=== PATIENT | male | born 1960 | race Caucasian/White ===

== ENCOUNTER 2017-01-24 20:40 | Emergency (ER) | payer OTHER ==
[~2017-01-24] VITALS: Ht 182.9 cm; Wt 104.3 kg
[~2017-01-24 20:40] MED LIST: BENA1TAB6 PO; BENA20TA2 PO
[2017-01-24] MEDS ORDERED: IV NORMAL SALINE 1000ML BAG 1,000 ML IV ONE (21:30)
[2017-01-24] MEDS ORDERED: KETOROLAC 15 MG/ML VIAL. IV ONE (21:30)
[2017-01-24] MEDS ORDERED: ONDANSETRON PF 4 MG/2 ML VIAL. IV ONE (21:30)
[2017-01-24] MEDS ORDERED: HYDROmorphone 2 MG/ML VIAL IV ONE ×2 (21:30→22:15)
[2017-01-24] MEDS ORDERED: IBUP-1007 PO (23:27)
[2017-01-24] MEDS ORDERED: OXYC-323 PO (23:27)
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
[2017-01-24 23:30] VITALS: BP 157/88
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
== END 2017-01-24 23:44 | disposition home or self-care (01) ==
LOC: ER 20:40
DX: S52.302A Unspecified fracture of shaft of left radius, initial encounter for closed fracture (principal); S52.202A Unspecified fracture of shaft of left ulna, initial encounter for closed fracture; I10 Essential (primary) hypertension; W05.0XXA Fall from non-moving wheelchair, initial encounter; Y93.89 Activity, other specified; Y92.89 Other specified places as the place of occurrence of the external cause; Y99.8 Other external cause status
CPT/HCPCS: 29125; 29240; 73090; 96361; 96374; 96375; 96376; 99285; J1170; J1885; J2405; J7030

== ENCOUNTER 2017-01-29 07:34 | Day surgery (SDC) | payer OTHER ==
[~2017-01-29] VITALS: Ht 182.9 cm; Wt 104.3 kg
[~2017-01-29 07:34] MED LIST changes: +ATOR10TA60; +BUPIVACAINE MPF 0.5% 30 ML VIAL. ONE; +CETI10TA22 PO; +HYDROmorphone 2 MG/ML VIAL IV PRN; +IBUP-1007 PO; +LIDOCAINE 1% 1 ML SYRINGE. ID PRN; +LIDOCAINE 1% PF 30 ML VIAL. ONE; +MORPHINE SULFATE 4 MG/ML DISP.SYRIN. IV PRN; +MULT-208 PO; +ONDANSETRON PF 4 MG/2 ML VIAL. IV PRN; +OXYC-323 PO; +PROCHLORPERAZINE 10 MG/2 ML VIAL. IV PRN; +RANI150T6 PO; +fentaNYL PF VIAL 100 MCG/2 ML VIAL IV PRN
[2017-01-29] MEDS: IV RINGERS,LACTATED 1000ML 1,000 ML IV SCH ×2 (08:24→12:39)
[2017-01-29] MEDS ORDERED: DEXAMETHASONE SOD PHOS 20 MG/5 ML VIAL. ONE (08:52)
[2017-01-29] MEDS ORDERED: ONDANSETRON PF 4 MG/2 ML VIAL. ONE (08:52)
[2017-01-29] MEDS ORDERED: LIDOCAINE 2% PF Vial for OR 5 ML VIAL. ONE (08:52)
[2017-01-29] MEDS ORDERED: PROPOFOL 20 ML IV ONE (08:52)
[2017-01-29] MEDS ORDERED: fentaNYL PF VIAL 100 MCG/2 ML VIAL ONE ×2 (08:53→12:10)
--- NOTE | 2017-01-29 09:12 | DISCH ---
DISCHARGE INSTRUCTIONS Condition on Discharge Condition on Discharge: Stable Activity After Discharge Activity Instructions for Disc: Other, see below Other activity instructions: leave splint intact, good to wiggles fingers Bathing Instructions: Shower-keep dressing dry Weight Bearing Status after Di: Non weight bearing Diet after Discharge Diet after Discharge: Regular Wound Incision Care Wound/Incision Care: Ice to area for comfort, Keep wound/cast CDI, Keep wound elevated, Do not change dressing Contacting the DR. after DC Call your doctor for: Concerns you may have Follow-Up Follow up with: Isabelle bradley 2wks SADIQ KAUFFMAN II, MD Jan 29, 2017 09:12
[2017-01-29] MEDS ORDERED: SUCCINYLCHOLINE 200 MG/10 ML VIAL. ONE (09:13)
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
[2017-01-29] MEDS ORDERED: ePHEDrine PF IN SALINE 50 MG/5 ML DISP.SYRIN IV ONE (09:37)
[2017-01-29] MEDS ORDERED: PHENYLEPHRINE in 0.9% NACL PF 1 MG/10 ML DISP.SYRIN. IV ONE (10:46)
[2017-01-29] MEDS: fentaNYL PF VIAL 100 MCG/2 ML VIAL IV PRN ×2 (12:14→12:34)
[2017-01-29] MEDS ORDERED: oxyCODONE/APAP 5/325 1 TAB TABLET PO ONE ×2 (12:30→13:00)
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
[2017-01-29 13:00] VITALS: BP 148/78
== END 2017-01-29 13:42 | disposition home or self-care (01) ==
LOC: SURG 07:34
PROVIDERS: ATTEND Orthopaedic Surgery Sports Medicine
DX: S52.392A Other fracture of shaft of radius, left arm, initial encounter for closed fracture (principal); S52.292A Other fracture of shaft of left ulna, initial encounter for closed fracture; X58.XXXA Exposure to other specified factors, initial encounter; Y93.89 Activity, other specified; Y92.89 Other specified places as the place of occurrence of the external cause; Y99.8 Other external cause status; E78.00 Pure hypercholesterolemia, unspecified; I10 Essential (primary) hypertension; K21.9 Gastro-esophageal reflux disease without esophagitis; Z87.39 Personal history of other diseases of the musculoskeletal system and connective tissue; Z86.69 Personal history of other diseases of the nervous system and sense organs; Z72.89 Other problems related to lifestyle; Z87.891 Personal history of nicotine dependence
CPT/HCPCS: 25575; 76000; C1713; J0330; J0690; J0780; J1100; J2370; J2405; J2704; J3010; J3490; J2001